=== PATIENT | female | born 1950 | race Caucasian/White ===

== ENCOUNTER 2020-12-13 00:24 | Emergency (ER) | payer BC ==
[~2020-12-13] VITALS: Ht 160 cm; Wt 59.1 kg
[2020-12-13 00:37] VITALS: BP_DIAS 78
[2020-12-13] MEDS ORDERED: metoprolol tartrate 1mg/ml inj IV ONE (00:55)
[2020-12-13 01:56] LABS: BASOPHILS # (AUTO) 0.1 X10'3 (0-0.2); BASOPHILS % (AUTO) 0.9 % (0-1); EOSINOPHILS # (AUTO) 0.1 X10'3 (0-0.9); EOSINOPHILS % (AUTO) 2.1 % (0-6); HEMATOCRIT 39.3 % (35.0-45.0); LYMPHOCYTES # (AUTO) 1.3 X10'3 (1.1-4.8); LYMPHOCYTES % (AUTO) 22.1 % (21-51); MEAN CORPUSCULAR HEMOGLOBIN 29.9 PG (27.0-31.0); MEAN CORPUSCULAR HGB CONC 33.2 g/dL (33.0-36.5); MEAN CORPUSCULAR VOLUME 89.9 FL (78-98); MEAN PLATELET VOLUME 9.7 FL (7.4-10.4); MONOCYTES # (AUTO) 0.7 X10'3 (0-0.9); MONOCYTES % (AUTO) 11.4 % (2-12); NEUTROPHILS # (AUTO) 3.7 X10'3 (1.8-7.7); NEUTROPHILS % (AUTO) 63.5 % (42-75); PLATELET COUNT 221 X10'3 (140-440); RED BLOOD COUNT 4.36 X10'6 (4.20-5.60); WHITE BLOOD COUNT 5.9 X10'3 (4.5-11.0)
[2020-12-13 02:07] VITALS: BP_SYST 138
[2020-12-13 02:16] LABS: ALANINE AMINOTRANSFERASE 33 U/L (12-78); ALBUMIN 3.5 G/DL (3.4-5.0); ALKALINE PHOSPHATASE 80 IU/L (46-116); ANION GAP 11 (8-16); ASPARTATE AMINO TRANSFERASE 9 U/L (10-37); BILIRUBIN,TOTAL 0.2 MG/DL (0.1-1.0); BLOOD UREA NITROGEN 17 MG/DL (7-18); BUN/CREATININE RATIO 20.7 (6.6-38.0); CALCIUM 8.8 MG/DL (8.5-10.1); CHLORIDE 108 MMOL/L (99-107); CREATININE 0.82 MG/DL (0.40-0.90); GLUCOSE 137 MG/DL (70-104); POTASSIUM 3.8 MMOL/L (3.5-5.1); SODIUM 145 MMOL/L (135-145); TOTAL CARBON DIOXIDE 25.6 MMOL/L (24-32); TOTAL PROTEIN 7.1 G/DL (6.4-8.2); eGFR 69 ML/MIN
[2020-12-13 02:23] LABS: MAGNESIUM 2.3 MG/DL (1.5-2.4)
== END 2020-12-13 03:53 | disposition home or self-care (01) ==
LOC: ER 00:25
DX: I48.91 Unspecified atrial fibrillation (principal); R00.0 Tachycardia, unspecified; I10 Essential (primary) hypertension
CPT/HCPCS: 36415; 71045; 80053; 83735; 83880; 84484; 85025; 93005; 96374; 99285; J3490

== ENCOUNTER 2021-03-01 00:13 | Emergency (ER) | payer BC ==
[~2021-03-01] VITALS: Ht 162.6 cm; Wt 65.9 kg
[2021-03-01 00:56] LABS: BASOPHILS % (AUTO) 0.5 % (0-1); EOSINOPHILS # (AUTO) 0.2 X10'3 (0-0.9); EOSINOPHILS % (AUTO) 4.3 % (0-6); HEMATOCRIT 39.7 % (35.0-45.0); HEMOGLOBIN 13.3 g/dl (12.0-16.0); LYMPHOCYTES # (AUTO) 1.5 X10'3 (1.1-4.8); LYMPHOCYTES % (AUTO) 32.2 % (21-51); MEAN CORPUSCULAR HEMOGLOBIN 29.5 PG (27.0-31.0); MEAN CORPUSCULAR HGB CONC 33.6 g/dL (33.0-36.5); MEAN CORPUSCULAR VOLUME 87.7 FL (78-98); MEAN PLATELET VOLUME 9.5 FL (7.4-10.4); MONOCYTES # (AUTO) 0.5 X10'3 (0-0.9); MONOCYTES % (AUTO) 11.6 % (2-12); NEUTROPHILS # (AUTO) 2.4 X10'3 (1.8-7.7); NEUTROPHILS % (AUTO) 51.4 % (42-75); PLATELET COUNT 183 X10'3 (140-440); RED BLOOD COUNT 4.53 X10'6 (4.20-5.60); RED CELL DISTRIBUTION WIDTH 14.4 % (11.5-14.5); WHITE BLOOD COUNT 4.6 X10'3 (4.5-11.0)
[2021-03-01 01:10] LABS: ALANINE AMINOTRANSFERASE 39 U/L (12-78); ALBUMIN 3.8 G/DL (3.4-5.0); ALBUMIN/GLOBULIN RATIO 1.1 (1.1-1.5); ALKALINE PHOSPHATASE 70 IU/L (46-116); ANION GAP -2 (8-16); ASPARTATE AMINO TRANSFERASE 15 U/L (10-37); BILIRUBIN,TOTAL 0.3 MG/DL (0.1-1.0); BLOOD UREA NITROGEN 18 MG/DL (7-18); CALCIUM 9.2 MG/DL (8.5-10.1); CHLORIDE 104 MMOL/L (99-107); CREATININE 0.58 MG/DL (0.40-0.90); GLUCOSE 131 MG/DL (70-104); SODIUM 132 MMOL/L (135-145); TOTAL CARBON DIOXIDE 30.2 MMOL/L (24-32); TOTAL PROTEIN 7.4 G/DL (6.4-8.2); eGFR > 90 ML/MIN
[2021-03-01 01:11] VITALS: BP 183/64
== END 2021-03-01 01:41 | disposition home or self-care (01) ==
LOC: ER 00:13
DX: I10 Essential (primary) hypertension (principal); I48.91 Unspecified atrial fibrillation; M19.90 Unspecified osteoarthritis, unspecified site; Z88.8 Allergy status to other drugs, medicaments and biological substances
CPT/HCPCS: 36415; 71045; 80053; 83880; 84484; 85025; 93005; 99285